=== PATIENT | male | born 1955 | race Caucasian/White ===

== ENCOUNTER 2017-06-27 10:24 | Emergency (ER) | payer MEDICARE ==
[~2017-06-27] VITALS: Ht 157.5 cm; Wt 114.0 kg
[2017-06-27 12:40] LABS: BASOPHILS % 0.9 % (0.0-2.0); EOSINOPHILS % 0.6 % (0.0-5.0); HEMATOCRIT. 45.1 % (42.0-52.0); HEMOGLOBIN. 15.6 g/dL (14.0-18.0); LYMPHOCYTES % 23.3 % (20.0-50.0); MEAN CORPUSCULAR HEMOGLOBIN 31.3 pg (28.0-32.0); MEAN CORPUSCULAR VOLUME 90.5 fL (80.0-94.0); MEAN PLATELET VOLUME 9.3 fl (7.4-10.4); MONOCYTES % 7.8 % (2.0-8.0); NEUTROPHILS % 67.4 % (40.0-76.0); PLATELET 203 x1000/uL (130-400); RED BLOOD CELL COUNT 4.98 mill/uL (4.7-6.1); RED CELL DISTRIBUTION WIDTH 13.4 % (11.6-14.6)
[2017-06-27 12:48] LABS: PARTIAL THROMBOPLASTIN TIME 25.8 sec (23.4-31.0); PROTHROMBIN TIME 10.4 sec (9.4-11.6)
[2017-06-27 12:58] LABS: CARBON DIOXIDE 26 mEq/L (21-32); CHLORIDE 106 mEq/L (98-107); CREATINE KINASE 208 IU/L (39-308); CREATINE KINASE MB FRACTION 3.3 ng/mL (0.5-3.6); TROPONIN I < 0.02 ng/mL (0.00-0.04)
[2017-06-27] MEDS ORDERED: KETOROLAC 30MG/ML VIAL IV ONE (13:45)
[2017-06-27 15:12] VITALS: BP 121/76
== END 2017-06-27 15:52 | disposition home or self-care (01) ==
LOC: ER 11:12
DX: M75.102 Unspecified rotator cuff tear or rupture of left shoulder, not specified as traumatic (principal); M25.571 Pain in right ankle and joints of right foot; M75.101 Unspecified rotator cuff tear or rupture of right shoulder, not specified as traumatic; R03.0 Elevated blood-pressure reading, without diagnosis of hypertension; R73.9 Hyperglycemia, unspecified
CPT/HCPCS: 29105; 36415; 71010; 73030; 73610; 80053; 82550; 82553; 83690; 83880; 84484; 85025; 85610; 85730; 93005; 93970; 96374; 99285; J1885; A4565